=== PATIENT | female | born 1970 | race African-American/Black ===

== ENCOUNTER 2022-09-20 10:08 | Inpatient (IN) | payer OTHER ==
[2022-09-20] MEDS ORDERED: Cefepime 2 GM VIAL ONE (11:14)
[2022-09-20 11:15] LABS: #Basophils 0.1 10x3/uL (0.0-0.2); #Eosinphils 0.2 10x3/uL (0.0-0.5); #Monocytes 1.1 10x3/uL (0.0-1.1); %Basophils 0.4 % (0.0-2.0); %Eosinophils 1.5 % (0.0-6.0); %Lymphocytes 20.9 % (18.0-47.0); %Monocytes 7.1 % (0.0-10.0); %Neutrophils 69.5 % (40.0-75.0); Hemoglobin 15.1 g/dL (12.0-15.5); Mean Corpuscular HGB CONC 36.5 g/dL (32.0-36.0); Mean Corpuscular Hemoglobin 30.4 pg (27.0-33.0); Mean Corpuscular Volume 83.5 fl (81.6-98.3); Mean Platelet Volume 11.8 fl (7.4-10.4); Platelet Count 323 10x3/uL (150-450); RBC Distribution Width 12.2 % (11.5-14.5); Red Blood Cell (RBC) Count 4.96 10x6/uL (3.90-5.03); White Blood Cell (WBC) Count 15.9 10x3/uL (3.5-10.5)
[2022-09-20 11:25] LABS: ALT (SGPT) 10 U/L (8-55); AST (SGOT) 8 U/L (5-34); Alkaline Phosphatase 89 U/L (40-110); Anion Gap 15 mmol/L (10-20); BUN (Urea Nitrogen) 9 mg/dL (9.8-20.1); Bilirubin, Total 0.6 mg/dL (0.2-1.2); CK (CPK) 16 U/L (29-168); Calc. Creatinine Clearance 0 mL/min (70-130); Calcium 9.7 mg/dL (7.8-10.44); Carbon Dioxide 25 mmol/L (22-29); Chloride 100 mmol/L (98-107); Estimated GFR 105; Globulin 3.5 g/dL (2.4-3.5); Glucose 332 mg/dL (70-105); Potassium 3.8 mmol/L (3.5-5.1); Protein, Total 7.5 g/dL (6.0-8.3); Sodium 136 mmol/L (136-145)
[2022-09-20] MEDS ORDERED: Vancomycin HCl 1.75 GM in Sodium Chloride 0.9% 500 ML IVPB SCH (11:30)
[2022-09-20 13:28] LABS: Bilirubin Neg (Negative); Blood, Urine 10 (Negative); Clarity Cloudy (Clear); Glucose, Urine (Dipstick) >=1000 mg/dL (Negative); Ketone, Urine Negative (Negative); Leukocyte 500 (Negative); Nitrite Positive (Negative); Protein, Urine (Dipstick) 30 mg/dl (Neg-Trace); Specific Gravity, Urine 1.005 (1.005-1.030); Urobilinogen Normal mg/dL (Less than 2)
[2022-09-20 13:40] LABS: Bacteria/HPF Rare-Few HPF (None Seen); Trichomonas/HPF None Seen HPF (None Seen); Yeast-Budding 1+ HPF (None Seen)
[2022-09-20 13:41] LABS: Other Microscopic Description CLUE CELLS SEEN
[2022-09-20] MEDS ORDERED: Acetaminophen 325 MG TAB PO PRN (16:26)
[2022-09-20] MEDS ORDERED: Calcium Carbonate 500 MG ChewTAB PO PRN (16:26)
[2022-09-20] MEDS ORDERED: Dextrose 50% Abboject 50 ML SYRINGE SLOW IVP PRN (16:26)
[2022-09-20] MEDS ORDERED: Senokot S 8.6-50 MG TAB PO PRN (16:26)
[2022-09-20] MEDS ORDERED: Dextrose 5% in Water 1,000 ML IV PRN (16:26)
[2022-09-20] MEDS ORDERED: Guaifenesin DM 100-10/5 ML UDCUP PO PRN (16:26)
[2022-09-20 18:56] VITALS: BMI 29.0
[2022-09-20] MEDS ORDERED: Piperacillin/Tazobactam 3.375 GM in Sodium Chloride 0.9% 100 ML IVPB SCH (21:00)
[2022-09-20] MEDS ORDERED: Lantus 1000 UNITS/10 ML VIAL SC SCH (21:00)
[2022-09-20] MEDS: Famotidine 20 MG TAB PO SCH (21:30)
[2022-09-20] MEDS: Atorvastatin Calcium 40 MG TAB PO SCH (21:30)
[2022-09-20] MEDS: HumaLOG 300 UNITS/3 ML VIAL SC PRN (22:25)
[2022-09-21] MEDS: Piperacillin/Tazobactam 3.375 GM in Sodium Chloride 0.9% 100 ML IVPB SCH ×3 (02:22→17:24)
[2022-09-21 04:42] LABS: #Basophils 0.1 10x3/uL (0.0-0.2); #Eosinphils 0.2 10x3/uL (0.0-0.5); #Monocytes 0.9 10x3/uL (0.0-1.1); %Basophils 0.4 % (0.0-2.0); %Eosinophils 1.3 % (0.0-6.0); %Lymphocytes 23.3 % (18.0-47.0); %Monocytes 6.6 % (0.0-10.0); %Neutrophils 67.9 % (40.0-75.0); Hemoglobin 14.6 g/dL (12.0-15.5); Mean Corpuscular HGB CONC 36.4 g/dL (32.0-36.0); Mean Corpuscular Hemoglobin 30.3 pg (27.0-33.0); Mean Corpuscular Volume 83.2 fl (81.6-98.3); Mean Platelet Volume 11.8 fl (7.4-10.4); Platelet Count 313 10x3/uL (150-450); RBC Distribution Width 12.1 % (11.5-14.5); Red Blood Cell (RBC) Count 4.82 10x6/uL (3.90-5.03); White Blood Cell (WBC) Count 13.3 10x3/uL (3.5-10.5)
[2022-09-21 05:00] LABS: ALT (SGPT) 7 U/L (8-55); AST (SGOT) 9 U/L (5-34); Albumin 3.7 g/dL (3.5-5.0); Alkaline Phosphatase 87 U/L (40-110); Anion Gap 18 mmol/L (10-20); BUN (Urea Nitrogen) 5 mg/dL (9.8-20.1); Bilirubin, Total 1.6 mg/dL (0.2-1.2); Calc. Creatinine Clearance 126 mL/min (70-130); Calcium 9.6 mg/dL (7.8-10.44); Carbon Dioxide 23 mmol/L (22-29); Cardiac Risk 5.7 (Less than 4.5); Chloride 102 mmol/L (98-107); Cholesterol 267 mg/dl (< 200 Desired); Estimated GFR 105; Globulin 3.1 g/dL (2.4-3.5); Glucose 299 mg/dL (70-105); HDL Cholesterol 47 mg/dL (>60 Neg Risk); LDL Cholesterol, Calculated 188 mg/dL; Potassium 3.5 mmol/L (3.5-5.1); Protein, Total 6.8 g/dL (6.0-8.3); Sodium 139 mmol/L (136-145); Triglycerides 162 mg/dL (Less than 150)
[2022-09-21] MEDS ORDERED: Lisinopril 5 MG TAB PO SCH (06:45)
[2022-09-21 06:50] LABS: SARS-CoV-2 NAA Rapid Test Not Detected (NotDetected)
[2022-09-21] MEDS ORDERED: Sodium Chloride 0.9% 100 ML ONE (08:13)
[2022-09-21] MEDS: Glimepiride 4 MG TAB PO SCH (08:47)
[2022-09-21] MEDS: Lantus 1000 UNITS/10 ML VIAL SC SCH (08:48)
[2022-09-21] MEDS: Famotidine 20 MG TAB PO SCH ×2 (08:48→20:21)
[2022-09-21] MEDS: Gabapentin 100 MG CAP PO SCH (08:48)
[2022-09-21 09:00] LABS: Pregnancy Test - Urine (BHCG) Negative (Negative)
[2022-09-21 09:02] LABS: Pregu Control Background? CLEAR/WHITE (CLR/WHITE); Pregu Control Bar Appear? YES (CONTROL BAR); Specific Gravity 1.005 (1.002-1.036)
[2022-09-21] MEDS ORDERED: PROPOFOL 20 ML ONE ×2 (12:07→12:57)
[2022-09-21] MEDS ORDERED: Lidocaine 1% PF 5 ML VIAL ONE (12:52)
[2022-09-21] MEDS ORDERED: Ondansetron PF 4 MG/2 ML Vial ONE (12:52)
[2022-09-21] MEDS ORDERED: Fentanyl 100 MCG/2 ML VIAL ONE (12:53)
[2022-09-21] MEDS ORDERED: Lidocaine 1% w/Epinephrine 1:100K 20 ML VIAL ONE (13:01)
[2022-09-21] MEDS ORDERED: metFORMIN 500 MG TAB PO SCH (15:00)
[2022-09-21] MEDS: HYDROcodone/Acetaminophen 5/325 mg Tablet PO PRN ×2 (16:17→20:21)
[2022-09-21] MEDS: HumaLOG 300 UNITS/3 ML VIAL SC PRN (17:22)
[2022-09-21] MEDS: Atorvastatin Calcium 40 MG TAB PO SCH (20:21)
[2022-09-21] MEDS: Morphine 2 MG/ML VIAL SLOW IVP PRN (22:36)
[2022-09-22] MEDS: Piperacillin/Tazobactam 3.375 GM in Sodium Chloride 0.9% 100 ML IVPB SCH (02:54)
[2022-09-22] MEDS: Morphine 2 MG/ML VIAL SLOW IVP PRN ×2 (02:58→07:58)
[2022-09-22] MEDS: Lantus 1000 UNITS/10 ML VIAL SC SCH (04:50)
[2022-09-22] MEDS: HumaLOG 300 UNITS/3 ML VIAL SC PRN (06:50)
[2022-09-22] MEDS ORDERED: metFORMIN 500 MG TAB PO SCH (08:00)
[2022-09-22] MEDS ORDERED: Lantus 1000 UNITS/10 ML VIAL SC SCH (08:00)
[2022-09-22 08:47] VITALS: BP 176/77; TEMP 98.1
[2022-09-22] MEDS ORDERED: Lisinopril 5 MG TAB PO SCH (09:00)
[2022-09-22] MEDS ORDERED: Aspirin Chewable 81 MG TAB PO SCH (09:00)
[2022-09-22] MEDS ORDERED: Lisinopril 10 MG TAB PO SCH (09:00)
[2022-09-22] MEDS ORDERED: Amoxicillin/Potassium Clav 875 MG TAB PO SCH (09:00)
[2022-09-22] MEDS: Famotidine 20 MG TAB PO SCH (09:16)
[2022-09-22] MEDS: Glimepiride 4 MG TAB PO SCH (09:16)
[2022-09-22] MEDS: HYDROcodone/Acetaminophen 5/325 mg Tablet PO PRN (09:16)
[2022-09-22] MEDS: Gabapentin 100 MG CAP PO SCH (09:17)
== END 2022-09-22 12:27 | disposition home or self-care (01) | DRG 617 ==
LOC: CSHERS 10:08 → CSHTELE 13:37
PROVIDERS: ADMIT Internal Medicine; ATTEND Internal Medicine
PROC: 0Y6Y0Z0 Detachment at Left 5th Toe, Complete, Open Approach (ICD-10-PCS; principal; 2022-09-21)
DX: E11.69 Type 2 diabetes mellitus with other specified complication (principal); E11.52 Type 2 diabetes mellitus with diabetic peripheral angiopathy with gangrene; L03.116 Cellulitis of left lower limb; M86.172 Other acute osteomyelitis, left ankle and foot; I10 Essential (primary) hypertension; E78.5 Hyperlipidemia, unspecified; F17.210 Nicotine dependence, cigarettes, uncomplicated; R94.31 Abnormal electrocardiogram [ECG] [EKG]; F31.9 Bipolar disorder, unspecified; F43.10 Post-traumatic stress disorder, unspecified; Z83.79 Family history of other diseases of the digestive system; Z91.14 Patient's other noncompliance with medication regimen; Z71.6 Tobacco abuse counseling; Z20.822 Contact with and (suspected) exposure to COVID-19
CPT/HCPCS: 36415; 36416; 80053; 80061; 81003; 81015; 81025; 82550; 83036; 83605; 85025; 87040; 87086; 88305; 88311; 93005; 93010; 93923; 96365; 96366; 96367; J0692; J1815; J2272; J2405; J2543; J2704; J3010; J3370; J3490; J7030; U0002

== ENCOUNTER 2022-09-30 20:21 | Emergency (ER) | payer OTHER ==
[2022-09-30 21:26] LABS: #Basophils 0.1 10x3/uL (0.0-0.2); #Eosinphils 0.2 10x3/uL (0.0-0.5); #Monocytes 1.1 10x3/uL (0.0-1.1); #Neutrophils 11.3 10x3/uL (1.5-8.4); %Basophils 0.3 % (0.0-2.0); %Eosinophils 1.4 % (0.0-6.0); %Monocytes 6.5 % (0.0-10.0); %Neutrophils 64.3 % (40.0-75.0); Hemoglobin 14.5 g/dL (12.0-15.5); Mean Corpuscular HGB CONC 35.8 g/dL (32.0-36.0); Mean Corpuscular Hemoglobin 30.2 pg (27.0-33.0); Mean Corpuscular Volume 84.4 fl (81.6-98.3); Mean Platelet Volume 11.2 fl (7.4-10.4); Platelet Count 375 10x3/uL (150-450); RBC Distribution Width 12.6 % (11.5-14.5); White Blood Cell (WBC) Count 17.5 10x3/uL (3.5-10.5)
[2022-09-30] MEDS ORDERED: VANCOMYCIN 2 GRAM/400 ML BAG 2 GM in Premix Bag 1 BAG IVPB ONE (21:30)
[2022-09-30 21:40] LABS: ALT (SGPT) 11 U/L (8-55); AST (SGOT) 13 U/L (5-34); Albumin 4.2 g/dL (3.5-5.0); Alkaline Phosphatase 75 U/L (40-110); Anion Gap 15 mmol/L (10-20); BUN (Urea Nitrogen) 16 mg/dL (9.8-20.1); Bilirubin, Total 0.6 mg/dL (0.2-1.2); Calc. Creatinine Clearance 0 mL/min (70-130); Calcium 9.7 mg/dL (7.8-10.44); Carbon Dioxide 22 mmol/L (22-29); Chloride 104 mmol/L (98-107); Estimated GFR 106; Globulin 3.5 g/dL (2.4-3.5); Glucose 172 mg/dL (70-105); Potassium 3.8 mmol/L (3.5-5.1); Protein, Total 7.7 g/dL (6.0-8.3); Sodium 137 mmol/L (136-145)
[2022-09-30] MEDS ORDERED: Fentanyl 100 MCG/2 ML VIAL ONE (21:41)
[2022-09-30] MEDS ORDERED: Cefepime 2 GM VIAL ONE (21:42)
[2022-09-30] MEDS ORDERED: Morphine 2 MG/ML VIAL ONE (23:09)
[2022-09-30] MEDS ORDERED: Morphine 4 MG/ML VIAL ONE (23:09)
[2022-10-01] MEDS ORDERED: Morphine 4 MG/ML VIAL ONE (00:44)
== END 2022-09-30 23:14 | disposition home or self-care (01) ==
LOC: CSHERS 20:21
DX: L03.032 Cellulitis of left toe (principal); D72.829 Elevated white blood cell count, unspecified; E11.9 Type 2 diabetes mellitus without complications; F17.210 Nicotine dependence, cigarettes, uncomplicated; I10 Essential (primary) hypertension; E78.5 Hyperlipidemia, unspecified; Z79.82 Long term (current) use of aspirin; Z79.84 Long term (current) use of oral hypoglycemic drugs; Z79.899 Other long term (current) drug therapy; Z89.422 Acquired absence of other left toe(s)
CPT/HCPCS: 36415; 80053; 83605; 85025; 87040; 87070; 87077; 87205; 93005; 96365; 96366; 96375; J0692; J2270; J2272; J3010; J3370

== ENCOUNTER 2022-10-28 08:32 | Inpatient (IN) | payer OTHER ==
[2022-10-28 10:36] LABS: #Basophils 0.1 10x3/uL (0.0-0.2); #Eosinphils 0.4 10x3/uL (0.0-0.5); #Monocytes 1.1 10x3/uL (0.0-1.1); #Neutrophils 10.7 10x3/uL (1.5-8.4); %Basophils 0.4 % (0.0-2.0); %Eosinophils 2.6 % (0.0-6.0); %Lymphocytes 22.6 % (18.0-47.0); %Monocytes 6.6 % (0.0-10.0); %Neutrophils 67.4 % (40.0-75.0); Hemoglobin 12.4 g/dL (12.0-15.5); Mean Corpuscular HGB CONC 36.2 g/dL (32.0-36.0); Mean Corpuscular Hemoglobin 30.9 pg (27.0-33.0); Mean Corpuscular Volume 85.5 fl (81.6-98.3); Mean Platelet Volume 11.3 fl (7.4-10.4); Platelet Count 386 10x3/uL (150-450); Red Blood Cell (RBC) Count 4.01 10x6/uL (3.90-5.03); White Blood Cell (WBC) Count 15.9 10x3/uL (3.5-10.5)
[2022-10-28] MEDS ORDERED: Morphine 4 MG/ML VIAL ONE (11:19)
[2022-10-28] MEDS ORDERED: cefTRIAXone (ROCEPHIN) 2 GM VIAL ONE (11:19)
[2022-10-28] MEDS ORDERED: HumaLOG 300 UNITS/3 ML VIAL SC PRN ×2 (11:43)
[2022-10-28] MEDS ORDERED: Ondansetron PF 4 MG/2 ML Vial IVP PRN (11:43)
[2022-10-28] MEDS ORDERED: Acetaminophen 325 MG TAB PO PRN (11:43)
[2022-10-28] MEDS ORDERED: Dextrose 50% Abboject 50 ML SYRINGE SLOW IVP PRN (11:43)
[2022-10-28] MEDS ORDERED: Dextrose 5% in Water 1,000 ML IV PRN (11:43)
[2022-10-28] MEDS ORDERED: Piperacillin/Tazobactam 3.375 GM in Sodium Chloride 0.9% 100 ML IVPB SCH ×2 (12:00→14:00)
[2022-10-28 12:25] LABS: ALT (SGPT) Less than 6 U/L (8-55); AST (SGOT) 8 U/L (5-34); Albumin 3.9 g/dL (3.5-5.0); Alkaline Phosphatase 72 U/L (40-110); Anion Gap 13 mmol/L (10-20); BUN (Urea Nitrogen) 20 mg/dL (9.8-20.1); Bilirubin, Total 0.4 mg/dL (0.2-1.2); Calc. Creatinine Clearance 0 mL/min (70-130); Calcium 9.4 mg/dL (7.8-10.44); Carbon Dioxide 26 mmol/L (22-29); Chloride 102 mmol/L (98-107); Estimated GFR 105; Globulin 3.1 g/dL (2.4-3.5); Glucose 191 mg/dL (70-105); Potassium 4.4 mmol/L (3.5-5.1); Sodium 137 mmol/L (136-145)
[2022-10-28 14:07] VITALS: BMI 27.6
[2022-10-28] MEDS ORDERED: Vancomycin HCl 1.5 GM, Admixture Fee 1 EACH in Sodium Chloride 0.9% 500 ML IVPB SCH (15:00)
[2022-10-28] MEDS: Lactated Ringer's 1,000 ML IV SCH (15:19)
[2022-10-28] MEDS: metFORMIN 500 MG TAB PO SCH (17:29)
[2022-10-28] MEDS: Piperacillin/Tazobactam 3.375 GM in Sodium Chloride 0.9% 100 ML IVPB SCH (17:31)
[2022-10-28] MEDS: Acetaminophen/Codeine 30-300mg Tablet PO PRN (19:15)
[2022-10-28] MEDS ORDERED: Atorvastatin Calcium 40 MG TAB PO SCH (21:00)
[2022-10-29] MEDS: Piperacillin/Tazobactam 3.375 GM in Sodium Chloride 0.9% 100 ML IVPB SCH ×2 (01:03→11:01)
[2022-10-29] MEDS: Acetaminophen/Codeine 30-300mg Tablet PO PRN ×3 (01:03→11:02)
[2022-10-29] MEDS: VANCOMYCIN 1.25 GM/250 ML BAG 1.25 GM in Premix Bag 1 BAG IVPB SCH ×2 (01:03→11:13)
[2022-10-29] MEDS: Lactated Ringer's 1,000 ML IV SCH (01:05)
[2022-10-29 04:20] LABS: #Basophils 0.1 10x3/uL (0.0-0.2); #Eosinphils 0.4 10x3/uL (0.0-0.5); #Monocytes 0.9 10x3/uL (0.0-1.1); #Neutrophils 7.9 10x3/uL (1.5-8.4); %Basophils 0.5 % (0.0-2.0); %Lymphocytes 27.7 % (18.0-47.0); %Monocytes 7.1 % (0.0-10.0); %Neutrophils 61.4 % (40.0-75.0); Hemoglobin 10.9 g/dL (12.0-15.5); Mean Corpuscular HGB CONC 35.7 g/dL (32.0-36.0); Mean Corpuscular Hemoglobin 30.4 pg (27.0-33.0); Mean Corpuscular Volume 85.2 fl (81.6-98.3); Mean Platelet Volume 10.6 fl (7.4-10.4); Platelet Count 351 10x3/uL (150-450); Red Blood Cell (RBC) Count 3.58 10x6/uL (3.90-5.03); White Blood Cell (WBC) Count 12.9 10x3/uL (3.5-10.5)
[2022-10-29 04:29] LABS: Anion Gap 13 mmol/L (10-20); BUN (Urea Nitrogen) 11 mg/dL (9.8-20.1); Calc. Creatinine Clearance 145 mL/min (70-130); Carbon Dioxide 23 mmol/L (22-29); Chloride 105 mmol/L (98-107); Estimated GFR 109; Glucose 161 mg/dL (70-105); Potassium 4.3 mmol/L (3.5-5.1); Sodium 137 mmol/L (136-145)
[2022-10-29] MEDS ORDERED: Glimepiride 4 MG TAB PO SCH (08:00)
[2022-10-29] MEDS ORDERED: Lisinopril 10 MG TAB PO SCH (09:00)
[2022-10-29] MEDS: metFORMIN 500 MG TAB PO SCH (11:01)
[2022-10-29 13:36] VITALS: BP 176/79; TEMP 98.4
== END 2022-10-29 16:00 | disposition home or self-care (01) | DRG 872 ==
LOC: CSHERS 08:32 → CSHTELE 12:35
PROVIDERS: ADMIT Internal Medicine; ATTEND Physician Assistant Medical
DX: A41.9 Sepsis, unspecified organism (principal); M86.172 Other acute osteomyelitis, left ankle and foot; E11.69 Type 2 diabetes mellitus with other specified complication; I10 Essential (primary) hypertension; E11.51 Type 2 diabetes mellitus with diabetic peripheral angiopathy without gangrene; F31.9 Bipolar disorder, unspecified; F43.10 Post-traumatic stress disorder, unspecified; E78.5 Hyperlipidemia, unspecified; F17.210 Nicotine dependence, cigarettes, uncomplicated; Z89.422 Acquired absence of other left toe(s); Z79.82 Long term (current) use of aspirin; Z79.84 Long term (current) use of oral hypoglycemic drugs; Z79.899 Other long term (current) drug therapy
CPT/HCPCS: 36415; 36416; 80048; 80053; 83605; 85025; 85652; 86140; 87040; 94760; 96365; 96367; 96375; 97139; J0696; J2270; J2543; J3370; J3490; J7030; J7120